=== PATIENT | female | born 1955 | race Caucasian/White ===

== ENCOUNTER → 2017-01-17 | Outpatient (CLI) | payer OTHER ==
[~2017-01-17] MED LIST: CO Q PO; LIPI10TA PO; LOVA20TA2 PO; MULTCAP11 PO; OSTETAB3 PO
--- NOTE | 2017-01-18 06:58 | REP ---
CHEST X-RAY: CLINICAL: Chronic cough. History of tuberculosis. TECHNIQUE: PA and lateral. COMPARISON: None. FINDINGS: The mediastinum and cardiac silhouette are relatively normal. Scattered calcific densities are appreciated predominately in the right apex and diffusely noted throughout the left hemithorax along with chronic appearing interstitial changes consistent with the history of prior tuberculosis and associated treatment. No obvious acute consolidation, effusion, or pneumothorax. Skeletal structures are intact. IMPRESSION: Chronic appearing changes as noted above consistent with prior tuberculosis. No obvious acute cardiopulmonary process. However, no prior examination is available for comparison and if patient remains symptomatic, consider chest CT for further investigation. Signed by Chau Thomson MD 01/19/2017 08:56 A
== END ==
LOC: M RAD 14:44
PROVIDERS: ATTEND Physician Assistant
DX: R05 Cough (principal)

== ENCOUNTER → 2019-07-17 | Outpatient (CLI) | payer OTHER ==
[~2019-07-17] MED LIST changes: +COQ-100C2 PO; +GABA-1171 PO; +IMIT100T PO
== END ==
LOC: M LABSMTC 11:14
PROVIDERS: ATTEND Pediatrics
DX: Z03.818 Encounter for observation for suspected exposure to other biological agents ruled out (principal); Z11.59 Encounter for screening for other viral diseases
CPT/HCPCS: 98925; G0463; U0003